=== PATIENT | female | born 1980 ===

== ENCOUNTER 2017-01-02 02:09 | Emergency (ER) | payer MEDICAID, OTHER ==
[2017-01-02 02:41] VITALS: BP 122/74; PULSE 73; RESP 18; TEMP 98.2; O2SAT 99
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
== END 2017-01-02 05:13 | disposition home or self-care (01) ==
LOC: H.ER 02:09
DX: S09.90XA Unspecified injury of head, initial encounter (principal); S40.029A Contusion of unspecified upper arm, initial encounter; S60.219A Contusion of unspecified wrist, initial encounter; J45.909 Unspecified asthma, uncomplicated; Z87.891 Personal history of nicotine dependence; Y04.2XXA Assault by strike against or bumped into by another person, initial encounter

== ENCOUNTER 2017-02-17 10:19 | Emergency (ER) | payer MEDICAID ==
[2017-02-17 10:26] VITALS: BP 117/67; PULSE 87; RESP 16; TEMP 98; O2SAT 100
[2017-02-17 10:27] VITALS: BMI 31.8
[2017-02-17] MEDS ORDERED: Sodium Chloride 0.9% 1,000 ML IV STA (10:52)
--- NOTE | 2017-02-17 10:56 | ED PDOC ---
HPI: Abdomen Time Seen by Provider: 02/17/17 10:32 Chief Complaint (Nursing): Abdominal Pain Chief Complaint (Provider): Abdominal Pain History Per: Patient History/Exam Limitations: no limitations Onset/Duration Of Symptoms: Days (x2) Current Symptoms Are (Timing): Still Present Additional Complaint(s): [place] is a 36 y/o female who presents to the ED complaining of pelvic cramping and epigastric pain since last night. Patient reports that she recently found out shes . Her last normal period was in October, but she states having 2 irregular periods since then. Denies any associated dysuria, frequency, hematuria, vaginal bleeding, back pain, chest pain, shortness of breath, nausea , vomiting, or diarrhea. She has felt constipated recently but is having regular bowel movements. PMD: [facility] Past Medical History Reviewed: Historical Data, Nursing Documentation, Vital Signs Vital Signs: Last Vital Signs Temp 98.0 F 02/17/17 10:25 Pulse 87 02/17/17 10:25 Resp 16 02/17/17 10:25 BP 117/67 02/17/17 10:26 Pulse Ox 100 02/17/17 10:58 - Medical History PMH: Asthma Other PMH: High risk - Family History Family History: States: Unknown Family Hx - Living Arrangements Living Arrangements: With Family - Social History Alcohol: None Drugs: Denies - Home Medications Home Medications: Ambulatory Orders Medication Instructions Recorded Doxycycline Hyclate 100 mg PO BID #28 capsule 10/10/16 - Allergies Allergies/Adverse Reactions: Allergies Allergy/AdvReac Type Severity Reaction Status Date / Time No Known Allergies Allergy Verified 02/17/17 10:36 Review of Systems ROS Statement: Except As Marked, All Systems Reviewed And Found Negative Constitutional: Negative for: Fever, Chills Cardiovascular: Negative for: Chest Pain Respiratory: Negative for: Cough, Shortness of Breath Gastrointestinal: Positive for: Abdominal Pain (epigastric and pelvic cramping) , Constipation. Negative for: Nausea, Vomiting, Diarrhea Genitourinary Female: Positive for: Pelvic Pain. Negative for: Dysuria, Frequency, Hematuria, Vaginal Bleeding Musculoskeletal: Negative for: Back Pain Neurological: Negative for: Weakness, Numbness, Headache, Dizziness Physical Exam - Reviewed Nursing Documentation Reviewed: Yes Vital Signs Reviewed: Yes - Physical Exam Appears: Positive for: Non-toxic, No Acute Distress Head Exam: Positive for: ATRAUMATIC, NORMAL INSPECTION, NORMOCEPHALIC Skin: Positive for: Normal Color, Warm, Dry Eye Exam: Positive for: EOMI, Normal appearance, PERRL Neck: Positive for: Normal, Painless ROM, Supple Cardiovascular/Chest: Positive for: Regular Rate, Rhythm. Negative for: Murmur Respiratory: Positive for: Normal Breath Sounds. Negative for: Respiratory Distress Gastrointestinal/Abdominal: Positive for: Soft, Tenderness (Mild tenderness across the lower pelvis and epigastric region) Back: Positive for: Normal Inspection. Negative for: L CVA Tenderness, R CVA Tenderness, Vertebral Tenderness Extremity: Positive for: Normal ROM. Negative for: Pedal Edema, Deformity Neurologic/Psych: Positive for: Alert, Oriented. Negative for: Motor/Sensory Deficits - Laboratory Results Result Diagrams: 02/17/17 11:10 02/17/17 11:10 Interpretation Of Abn Labs: 65,346 bhcg - ECG O2 Sat by Pulse Oximetry: 100 (RA) Pulse Ox Interpretation: Normal - Progress ED Course And Treament: 1251: Stable. AAOx3. Preg, 7wk2d. Fu with obgyn. Tolerated PO. Medical Decision Making Medical Decision Making: Time: 10:51 Initial Plan: --Urine --Urine dip --CMP --Lipase --CMP --Beta-HCG quant --Blood type and screen --NS IV 1000 ml at 1000 mls/hr --Pepcid 20 mg IV --Pending US OB Transvaginal Scribe Attestation: Documented by Joleen Calvillo, acting as a scribe for Daniel Miranda MD Provider Scribe Attestation: All medical record entries made by the Scribe were at my direction and personally dictated by me. I have reviewed the chart and agree that the record accurately reflects my personal performance of the history, physical exam, medical decision making, and the department course for this patient. I have also personally directed, reviewed, and agree with the discharge instructions and disposition. Disposition - Clinical Impression Clinical Impression: Abdominal pain during - Patient ED Disposition Is Patient to be Admitted: No Counseled Patient/Family Regarding: Studies Performed, Diagnosis, Need For Followup - Disposition [facility] - 02/19[facility]17 Disposition: Routine/Home Disposition Time: 12:57 Condition: STABLE Additional Instructions: Return if not better in 3 days. Instructions: (ED) Forms: PST [employer] (Setswana)
[2017-02-17 11:22] LABS: BASO # 0.1 K/uL (0.0-0.2); BASO % 0.7 % (0.0-2.0); EOS # 0.1 K/uL (0.0-0.7); EOS % 0.5 % (0.0-4.0); HEMATOCRIT 38.9 % (34.0-47.0); LYMPH # 2.1 K/uL (1.0-4.3); LYMPH % 19.3 % (20.0-40.0); MEAN CELL VOLUME 80.6 fl (81.0-99.0); MEAN CORPUSCULAR HEMOGLOBIN 25.8 pg (27.0-31.0); MEAN PLATELET VOLUME 8.8 fl (7.2-11.7); MONO # 0.6 K/uL (0.0-0.8); MONO % 5.7 % (0.0-10.0); NEUT # 8.1 K/uL (1.8-7.0); NEUT % 73.8 % (50.0-75.0); RED CELL DISTRIBUTION WIDTH 14.2 % (11.5-14.5)
[2017-02-17 11:30] LABS: ALB/GLOB RATIO 1.5 (1.0-2.1); ALKALINE PHOSPHATASE 71 U/L (38-126); ALT/SGPT 22 U/L (9-52); AST/SGOT 20 U/L (14-36); BILIRUBIN,TOTAL 0.2 mg/dl (0.2-1.3); BLOOD UREA NITROGEN 10 mg/dl (7-17); CALCIUM 9.4 mg/dL (8.4-10.2); CARBON DIOXIDE 23 mmol/L (22-30); CHLORIDE 105 mmol/L (98-107); GFR AFRICAN-AMERICAN > 60; GLUCOSE,RANDOM 88 mg/dL (65-105); LIPASE 44 U/L (23-300); POTASSIUM 3.9 MMOL/L (3.6-5.0); SODIUM 140 mmol/l (132-148); TOTAL PROTEIN 7.6 G/DL (6.3-8.2)
--- NOTE | 2017-02-17 14:17 | US ---
PROCEDURE: HISTORY: pain of COMPARISON: TECHNIQUE: FINDINGS: The uterus measures 11.5 x 5.1 x 6.6 centimeters. Endometrium is demonstrates intrauterine sac measuring 2.5 centimeters corresponds 7 weeks and 2 days gestational age. Yolk sac is present. There is a pole measuring 1 centimeter corresponds to 7 weeks and 1 day gestational age. heart motion is identified at 140 beats per minute The left ovary demonstrates a 2.5 centimeter corpus luteum. The right ovary is unremarkable. IMPRESSION: Seven week intrauterine gestation.
== END 2017-02-17 13:31 | disposition home or self-care (01) ==
LOC: H.ER 10:19
DX: O26.899 Other specified pregnancy related conditions, unspecified trimester (principal)
CPT/HCPCS: 76815; 76817; 80053; 81025; 83690; 84702; 85025; 86850; 86900; 96374; 99283; J7040